=== PATIENT | female | born 1950 | race Hispanic/Latino ===

== ENCOUNTER 2019-01-14 10:59 | Emergency (ER) | payer OTHER ==
[2019-01-14] MEDS ORDERED: DIAZEPAM 5 MG TABLET ONE (11:15)
[2019-01-14] MEDS ORDERED: KETOROLAC TROMETHAMINE 30MG/ML ONE (11:15)
[2019-01-14] MEDS ORDERED: LIDOCAINE 5% TOPICAL PATCH TP ONE (11:15)
== END 2019-01-14 13:08 | disposition home or self-care (01) ==
LOC: EDH 10:59
DX: M54.16 Radiculopathy, lumbar region (principal); I10 Essential (primary) hypertension; E78.5 Hyperlipidemia, unspecified; Z90.49 Acquired absence of other specified parts of digestive tract; Z90.710 Acquired absence of both cervix and uterus
CPT/HCPCS: 96372; 99283; J1885